=== PATIENT | male | born 1955 | race Caucasian/White ===

== ENCOUNTER → 2024-08-22 | Outpatient (CLI) | payer MEDICARE, MEDICAID, SELFPAY ==
--- NOTE | 2024-08-22 12:10 | XR_ITS ---
Examination: MRI abdomen with intravenous contrast. MRI abdomen without intravenous contrast. Date and time of exam: August 22, 2024 1256 hours INDICATIONS: Cirrhosis, esophageal bleeding ulcers 4 months, CT abdomen 06/04/2024 21 x 20 mm mass head of the pancreas Technique: Multiple axial, sagittal and coronal sections of the abdomen obtained. Transverse images, TR 6020, TE 107. T1 weighted transverse images, TR 582, TE 9.5. T2-weighted sagittal images, TR 4000, TE 105. T2-weighted sagittal images, TR 4000, TE 5. Coronal images, TR 4210, TE 107. Axial and coronal images are obtained post 20 cc intravenous injection, gadolinium. Findings: No focal liver lesions Spleen is not enlarged Contracted gallbladder Precontrast images 10 mm cyst The head of the pancreas This lesion does not enhance on the postcontrast images No hydronephrosis No ascites Aorta normal size No bowel obstruction IMPRESSION: 10 mm cyst at or near the head of the pancreas Recommend 6 month follow-up CT abdomen with intravenous contrast
== END | disposition home or self-care (01) ==
LOC: SMRI 08-23 07:57
PROVIDERS: PCP Family Medicine; Referring Provider Family Medicine; Visit Provider Family Medicine
DX: K86.2 Cyst of pancreas (principal)
CPT/HCPCS: 74183; A9579